=== PATIENT | male | born 1965 | race Caucasian/White ===

== ENCOUNTER → 2019-03-23 | Outpatient (CLI) | payer OTHER ==
[2018-10-31 07:00] VITALS: BP 262/97
[~2019-03-23] MED LIST: ESCITALOPRAM OX20 MG PO; LORA10TA68 PO; MAGN400C PO; MAGNESIUM TOP; OMEP40CA45 PO; TEST200V3 IM; TRAM50TA PO
[2019-03-23 12:59] LABS: HEMATOCRIT 42.2 % (39.0-53.0); HEMOGLOBIN 14.5 g/dL (13.0-17.5)
== END | disposition home or self-care (01) ==
LOC: SPEC 12:46
PROVIDERS: ATTEND Orthopaedic Surgery
DX: E29.1 Testicular hypofunction (principal)
CPT/HCPCS: 36415; 85014; 85018

== ENCOUNTER → 2019-08-21 | Outpatient (CLI) | payer OTHER ==
[2018-10-31 07:00] VITALS: BP 262/97
[2019-08-21 13:03] LABS: HEMATOCRIT 41.1 % (39.0-53.0); HEMOGLOBIN 13.8 g/dL (13.0-17.5)
== END | disposition home or self-care (01) ==
LOC: LAB 12:24
PROVIDERS: ATTEND Orthopaedic Surgery
DX: R79.89 Other specified abnormal findings of blood chemistry (principal)
CPT/HCPCS: 36415; 84410; 85014; 85018

== ENCOUNTER → 2019-12-08 | Outpatient (CLI) | payer OTHER ==
[2018-10-31 07:00] VITALS: BP 262/97
[2019-12-08 19:03] LABS: BASO # 0.1 x10^3/uL (0.0-0.2); BASO % 1 % (0-3); EOS # 0.3 x10^3/uL (0.0-0.7); EOS % 2 % (0-3); HEMATOCRIT 42.4 % (39.0-53.0); HEMOGLOBIN 14.2 g/dL (13.0-17.5); LYMPH # 2.8 x10^3/uL (1.0-4.8); LYMPH % 23 % (24-48); MEAN CORPUSCULAR HEMOGLOBIN 27 pg (25-35); MEAN CORPUSCULAR HGB CONC 34 g/dL (31-37); MEAN CORPUSCULAR VOLUME 81 fL (79-100); MONO # 1.3 x10^3/uL (0.0-1.1); MONO % 11 % (0-9); NEUT # 7.8 x10^3/uL (1.8-7.7); NEUT % 64 % (31-73); PLATELET COUNT 243 x10^3/uL (140-400); RED BLOOD COUNT 5.27 x10^6/uL (4.30-5.70); RED CELL DISTRIBUTION WIDTH 14.3 % (11.5-14.5); WHITE BLOOD COUNT 12.2 x10^3/uL (4.0-11.0)
[2019-12-08 19:38] LABS: ALBUMIN 4.1 g/dL (3.4-5.0); ALBUMIN/GLOBULIN RATIO 1.1 (1.0-1.7); CALCIUM 8.9 mg/dL (8.5-10.1); CREATININE 1.2 mg/dL (0.7-1.3); GFR 63.3; MAGNESIUM 1.4 mg/dL (1.8-2.4); POTASSIUM 3.4 mmol/L (3.5-5.1); TOTAL BILIRUBIN 0.6 mg/dL (0.2-1.0); TOTAL PROTEIN 7.7 g/dL (6.4-8.2)
[2019-12-08 19:40] LABS: CHOLESTEROL/HDL RATIO 4.9
[2019-12-10 02:09] LABS: HEMOGLOBIN A1C 5.8 % (4.8-5.6)
[2019-12-17 08:14] LABS: TESTOSTERONE FREE 20.38 ng/dL (5.00-21.00)
== END | disposition home or self-care (01) ==
LOC: LAB 17:06
PROVIDERS: ATTEND Internal Medicine
DX: Z13.220 Encounter for screening for lipoid disorders (principal); Z13.228 Encounter for screening for other metabolic disorders; Z13.1 Encounter for screening for diabetes mellitus; R79.89 Other specified abnormal findings of blood chemistry; G25.81 Restless legs syndrome; Z76.89 Persons encountering health services in other specified circumstances
CPT/HCPCS: 36415; 80053; 80061; 82728; 83036; 83735; 84153; 84402; 84403; 84443; 85025; G0103